=== PATIENT | female | born 1935 | race African-American/Black ===

== ENCOUNTER 2017-03-01 03:45 | Inpatient (IN) | payer MEDICARE, OTHER ==
[~2017-03-01] VITALS: Ht 157.5 cm; Wt 52.2 kg
[~2017-03-01 03:45] MED LIST: NIFE30TA43 PO; PHEN30TA42 PO
[2017-03-01] MEDS ORDERED: ONDANSETRON HCL 4MG/2ML VIAL IV STA (04:03)
[2017-03-01] MEDS ORDERED: MORPHINE SULFATE 4 MG/ML CPJ (NOT FOR IM USE) IV STA (04:03)
[2017-03-01] MEDS ORDERED: SODIUM CHLORIDE 0.9% 1,000 ML IV ONE (05:27)
[2017-03-01 05:43] LABS: HEMATOCRIT. 37.3 % (36.0-48.0); HEMOGLOBIN. 12.1 g/dL (12.0-16.0); MEAN CORPUSCULAR HEMOGLOBIN 29.1 pg (28.0-32.0); MEAN CORPUSCULAR VOLUME 89.4 fL (81.0-99.0); MEAN PLATELET VOLUME 8.8 fl (7.4-10.4); PLATELET 159 x1000/uL (130-400); RED BLOOD CELL COUNT 4.18 mill/uL (4.2-5.4); RED CELL DISTRIBUTION WIDTH 14.3 % (11.6-14.6)
[2017-03-01 05:49] LABS: CHLORIDE 106 mEq/L (98-107)
[2017-03-01 05:58] LABS: CARBON DIOXIDE 31 mEq/L (21-32)
[2017-03-01 06:07] LABS: PLATELET ESTIMATE NORMAL
[2017-03-01 12:00] VITALS: BP 145/111
[2017-03-01 13:03] VITALS: BP 145/111
[2017-03-01] MEDS: SODIUM CHLORIDE 0.9% INJ 3ML FLUSH IVF SCH ×2 (14:00→21:53)
[2017-03-01] MEDS ORDERED: DEXT 5%/0.45% NACL KCL 20MEQ/L 1,000 ML IV ONE (14:00)
[2017-03-01 16:00] VITALS: BP 106/50
[2017-03-01 20:00] VITALS: BP 122/59
[2017-03-02] VITALS: BP 119/69
[2017-03-02 04:00] VITALS: BP 161/85
[2017-03-02] MEDS: SODIUM CHLORIDE 0.9% INJ 3ML FLUSH IVF SCH ×3 (05:01→21:12)
[2017-03-02 08:00] VITALS: BP 155/81
[2017-03-02 12:00] VITALS: BP 158/88
[2017-03-02 16:00] VITALS: BP 133/87
[2017-03-02 20:00] VITALS: BP 156/86
[2017-03-03] VITALS: BP 109/57
[2017-03-03] MEDS: HYDROMORPHONE HCL/PF 2MG/ML CPJ IV PRN ×3 (01:47→10:53)
[2017-03-03 04:00] VITALS: BP 111/57
[2017-03-03] MEDS: SODIUM CHLORIDE 0.9% INJ 3ML FLUSH IVF SCH ×2 (06:27→16:02)
[2017-03-03 08:00] VITALS: BP 113/63
[2017-03-03 12:00] VITALS: BP 128/73
[2017-03-03 20:00] VITALS: BP 87/57
[2017-03-04] VITALS: BP 132/68
[2017-03-04 04:00] VITALS: BP 166/83
[2017-03-04] MEDS: SODIUM CHLORIDE 0.9% INJ 3ML FLUSH IVF SCH (05:14)
[2017-03-04] MEDS: HYDROMORPHONE HCL/PF 2MG/ML CPJ IV PRN (05:15)
[2017-03-04 08:00] VITALS: BP 143/82
[2017-03-04 12:00] VITALS: BP 164/94
[2017-03-04 14:32] VITALS: BP 164/94
[2017-03-04 16:00] VITALS: BP 136/91
== END 2017-03-04 18:20 | disposition hospice, home (50) | DRG 70 ==
LOC: ER 03:58 → INTOOBSV 09:01 → OBSVTOIN 09:01 → 8WST 09:01 → EDBEDREQTM 09:03 → EDBEDREQ 09:03 → CANRESERV 10:05 → ENRESERV 10:05
PROVIDERS: ADMIT Ophthalmology; ATTEND Ophthalmology
DX: G93.40 Encephalopathy, unspecified (principal); J96.90 Respiratory failure, unspecified, unspecified whether with hypoxia or hypercapnia; C56.9 Malignant neoplasm of unspecified ovary; G40.909 Epilepsy, unspecified, not intractable, without status epilepticus; J44.9 Chronic obstructive pulmonary disease, unspecified; Z66 Do not resuscitate; I10 Essential (primary) hypertension; Z51.5 Encounter for palliative care
CPT/HCPCS: 36415; 80053; 85025; 96361; 96374; 96375; 99285; C1893; G0378; J1170; J2270; J2405; J7030